=== PATIENT | male | born 1975 | race Caucasian/White ===

== ENCOUNTER 2022-03-01 13:31 | Outpatient (CLI) | payer OTHER, BC, SELFPAY | END 2022-03-01 13:32 | disposition home or self-care (01) | PROVIDERS: Visit Provider Family Medicine | DX: R06.09 Other forms of dyspnea (principal) | CPT/HCPCS: A0425; A0427 ==

== ENCOUNTER 2022-03-01 14:04 | Emergency (ER) | payer OTHER, BC, SELFPAY ==
[2022-03-01 14:09] VITALS: BP 116/66; PULSE 77; TEMP 36.7; O2SAT 97; BMI 43.9
[2022-03-01 14:22] VITALS: O2SAT 95
--- NOTE | 2022-03-01 14:23 | CRLHL7_ITS ---
For Patients: As a result of the 21st Century Cures Act, medical imaging exams and procedure reports are released immediately into your electronic medical record. You may view this report before your referring provider. If you have questions, please contact your health care provider. INDICATION: Left chest wall pain. COMPARISON: Chest radiograph 02/26/2022. CT of the abdomen and pelvis 02/26/2022. TECHNIQUE: CT of the chest with 95 cc of Isovue 370 IV contrast. Coronal and sagittal reconstructions. FINDINGS: Normal heart size. Mild aneurysmal dilation of the ascending thoracic aorta measuring 4.0 cm in AP dimension. Central pulmonary arteries are mildly prominent. Negative for acute pulmonary embolism. No pericardial effusion. No thoracic lymphadenopathy. Thyroid gland not well seen. No focal consolidation, pleural effusion, or pneumothorax. 7 mm noncalcified pulmonary nodule along the right major fissure (series 5 image 89). Mild diffuse bronchial thickening. No central endobronchial lesion. Hepatic steatosis. The visualized upper abdomen is otherwise unremarkable. Degenerative changes of the spine. No rib fracture identified. IMPRESSION: 1. Negative for acute pulmonary embolism. 2. Mild aneurysmal dilation of the ascending thoracic aorta. 3. Mild diffuse bronchial wall thickening. The lungs are otherwise clear. 4. 7 mm noncalcified pulmonary nodule along the right major fissure. Please see follow-up guidelines below. 5. Hepatic steatosis. [employer] GUID[employer]INES - SOLID NODULES: : SINGLE LOW RISK - nodule less than 6 mm: No routine follow-up. - nodule 6-8 mm: CT at 6-12 months, then consider CT at 18-24 months. - nodule greater than 8 mm: Consider CT at 3 months, PET/CT or tissue sampling. SINGLE HIGH RISK - nodule less than 6 mm: Optional CT at 12 months. - nodule 6-8 mm: CT at 6-12 months, then CT at 18-24 months. - nodule greater than 8 mm: Consider CT at 3 months, PET/CT or tissue sampling. Please note that all CT scans at this facility use dose modulation, iterative reconstruction, and/or weight-based dosing when appropriate to reduce radiation dose to as low as reasonably achievable. Dictated by Michelle Springer MD @ 03/01/2022 4:35:57 PM (Electronically Signed)
--- NOTE | 2022-03-01 14:29 | ED_ITS ---
HPI - General Adult General Time Seen by Provider: 14:29 Date Seen: 03/01/22 Chief complaint: Chest Pain Stated complaint: Covid+ Pulled Muscle Time Seen by Provider: 03/01/22 14:06 Source: patient Mode of arrival: EMS Limitations: physical limitation History of Present Illness HPI narrative: Patient is a 46 year white male from the [facility], who presents with left-sided chest wall pain. He got this when he developed COVID over Thanksgiving and he had some coughing and had subsequent sharp pain in his left lateral chest. He has been x-rayed at another hospital and they did not see any findings he presents back given that the pain has recurred and continued. He has had no marked fever, but he is COVID positive as mention. No rigors, no chills, no anterior chest pain pain is localized over the left lateral chest wall below his nipple line in the mid axillary line. 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 Related Data Home Medications Medication Instructions Recorded Confirmed buspirone 10 mg tablet mg 03/01/22 cabergoline 0.5 mg tablet mg 03/01/22 cyclobenzaprine 10 mg tablet mg 03/01/22 duloxetine 60 mg capsule,delayed mg PO 03/01/22 release losartan 25 mg tablet mg 03/01/22 oxycodone 5 mg tablet mg 03/01/22 sotalol 80 mg tablet mg 03/01/22 warfarin 5 mg tablet mg 03/01/22 Allergies Allergy/AdvReac Type Severity Reaction Status Date / Time No Known Drug Allergies Allergy Verified 03/01/22 14:54 Review of Systems Status of ROS: Reports: 6 or more systems reviewed and unremarkable except as noted in History and below Exam Narrative: Exam Narrative: Objective: The patient has stable vital signs, is alert orient x3, pleasant He is left chest wall he has a lidocaine patch on with palpation he is exquisitely tender over his costochondral margin on the left lower ribcage in the mid axillary line There is no obvious crepitus I can hear feel Abdomen is benign HEENT unremarkable neck is supple neurologic nonfocal abdomen obese benign Extremities are no edema neurologic nonfocal good peripheral perfusion noted Const: Vital Signs, click to edit/add: Vital Signs - 24 hr 03/01/22 14:09 03/01/22 14:22 03/01/22 15:32 Temperature 98.0 F Pulse Rate [Left P ulse Oximeter] 77 69 Blood Pressure [Ri ght Upper Arm] 116/66 111/65 Pulse Oximetry 97 95 93 Oxygen Delivery Me thod Room Air Room Air Course Vital Signs Vital signs: Initial Vital Signs Temperature 98.0 F 03/01/22 14:09 Temperature Source Temporal Artery Scan 03/01/22 14:09 Pulse Rate 77 03/01/22 14:09 Blood Pressure 116/66 03/01/22 14:09 Blood Pressure Mean 82 03/01/22 14:09 Blood Pressure Position Supine 03/01/22 14:09 Pulse Oximetry 97 03/01/22 14:09 Oxygen Delivery Method 03/01/22 14:09 Vital Signs Temperature 98.0 F 03/01/22 14:09 Pulse Rate 77 03/01/22 14:09 Blood Pressure 116/66 03/01/22 14:09 Pulse Oximetry 97 03/01/22 14:09 Oxygen Delivery Method 03/01/22 14:09 Temperature 98.0 F 03/01/22 14:09 Pulse Rate 64 03/01/22 16:30 Blood Pressure 115/78 03/01/22 16:30 Pulse Oximetry 96 03/01/22 16:30 Oxygen Delivery Method 03/01/22 16:30 Medical Decision Making MDM Narrative Medical decision making narrative: This 46 year white male who is COVID positive, had a significant coughing episode and injured his left chest wall. I suspect he has a rib fracture he was treat seen with and got a x-ray of his chest that was nondiagnostic. Will check an EKG, labs, CT scan of the chest with IV contrast given his history of PE although I think this is more of a mechanical chest wall injury. Of note is his EKG shows normal sinus rhythm nonspecific ST changes no obvious acute changes are some artifact present by my read Addendum: Patient's EKG looks reassuring by my read with normal sinus rhythm no acute ST T wave changes other than some artifact. His chest CT shows no rib fracture no pulmonary embolus he does have a pulmonary nodule that will need a repeat CT in 6-9 months. That is not the source of his discomfort. He does have COVID. He does feel better after IV morphine will give additional 2 mg, and then will also give him [place] from the [facility], follow up with regular doctor in the next 2 days with the video visit be preferable given he has COVID. But update by phone if needed. Expect that 7-10 days if he has a rib strain or chondral strain would take before he is improved. He was comfortable plan will follow up as needed and as directed above. Lab Data Labs: Lab Results 03/01/22 03/01/22 03/01/22 Range/Units 14:23 14:23 14:30 WBC 7.79 (4.50-11.00) K/uL RBC 4.71 (4.30-5.90) m/uL Hgb 14.6 (13.5-17.5) gm/dL Hct 43.5 (37.0-53.0) % MCV 92 (80-100) fL MCH 31 (26-34) pg MCHC 34 (32-36) gm/dL RDW Coeff of Waldemar 12.4 (11.5-15.5) % Plt Count 316 (140-440) K/uL Neut % (Auto) 71.4 (42.0-72.0) % Lymph % (Auto) 18.5 L (20-44) % [place] % (Auto) 7.4 (0.0-11.0) % Eos % (Auto) 2.1 (0.0-7.0) % Baso % (Auto) 0.3 (0.0-3.0) % Neut # (Auto) 5.57 (1.7-7.0) K/uL Lymph # (Auto) 1.40 (0.90-2.90) K/uL [place] # (Auto) 0.60 (0.00-0.90) K/UL Eos # (Auto) 0.16 (0.00-0.50) K/uL Baso # (Auto) 0.02 (0.00-0.30) K/uL Abs Immat Gran (auto) 0.02 (0.00-0.30) K/uL Imm/Tot Granulo (auto) 0.3 % INR 2.17 H (0.91-1.10) Sodium 141 (135-149) mmol/L Potassium 4.5 (3.6-5.1) mmol/L Chloride 105 (96-114) mmol/L Carbon Dioxide 31 (20-32) mmol/L BUN 11 (5-24) mg/dL Creatinine 0.9 (0.5-1.5) mg/dL Estimated Creat Clear 138.81 Estimated GFR 108 ml/min Glucose 71 (60-115) mg/dL Calcium 9.2 (8.4-10.6) mg/dL Total Bilirubin 0.5 (0.1-1.5) mg/dL Direct Bilirubin 0.2 (0.0-0.5) mg/dL AST 40 H (12-35) U/L ALT 35 (4-50) U/L Alkaline Phosphatase 96 (40-150) U/L C-Reactive Protein 0.8 (0.5-1.0) mg/dL Total Protein 7.3 (6.0-8.3) g/dL Albumin 4.2 (3.3-5.0) g/dL Discharge Plan Discharge Clinical Impression: Acute chest wall pain, Pulmonary nodule Patient Disposition: Home w/ Parent or Adult Condition: Improved Additional Instructions: Light activity, ice to the chest wall, [place] as needed, Advil as needed, update primary care doctor next 2 days, return to ED sooner problems or concerns. Patient also has a pulmonary nodule that needs follow-up CT scanning in 6-9 months. Activity Level: Light activity Discharge Diet: Regular Prescriptions: No Action cyclobenzaprine 10 mg tablet sotalol 80 mg tablet buspirone 10 mg tablet warfarin 5 mg tablet cabergoline 0.5 mg tablet losartan 25 mg tablet oxycodone 5 mg tablet Label Comments: TAKE 1 TABLET BY MOUTH EVERY 4 HOURS NEEDED FOR PAIN duloxetine 60 mg capsule,delayed release(DR/EC) PO Stand Alone Forms: [facility] Info Instructions
[2022-03-01] MEDS: 0.9 % SODIUM CHLORIDE 500 ML 500 ML IV (14:40)
[2022-03-01] MEDS: KETOROLAC 30 MG/ML inj IVP (14:40)
[2022-03-01] MEDS: MORPHINE 4 MG/ML INJ IVP (14:42)
[2022-03-01 14:45] LABS: Basophils Absolute Auto 0.02 K/uL (0.00-0.30); Basophils Percent Auto 0.3 % (0.0-3.0); Eosinophils Absolute Auto 0.16 K/uL (0.00-0.50); Eosinophils Percent Auto 2.1 % (0.0-7.0); Hematocrit 43.5 % (37.0-53.0); Hemoglobin* 14.6 gm/dL (13.5-17.5); Immature Granulocytes Abs Auto 0.02 K/uL (0.00-0.30); Immature Granulocytes Pct Auto 0.3 %; Lymphocytes Percent Auto 18.5 % (20-44); Mean Corpuscular HGB Conc 34 gm/dL (32-36); Mean Corpuscular Hemoglobin 31 pg (26-34); Mean Corpuscular Volume 92 fL (80-100); Monocytes Percent Auto 7.4 % (0.0-11.0); Neutrophils Absolute Auto 5.57 K/uL (1.7-7.0); Neutrophils Percent Auto 71.4 % (42.0-72.0); Platelet Count* 316 K/uL (140-440); RDW Coefficient of Variation % 12.4 % (11.5-15.5); Red Blood Count 4.71 m/uL (4.30-5.90); White Blood Count* 7.79 K/uL (4.50-11.00)
[2022-03-01 14:57] LABS: Albumin* 4.2 g/dL (3.3-5.0); Chloride* 105 mmol/L (96-114); Sodium* 141 mmol/L (135-149)
[2022-03-01 14:58] LABS: Potassium* 4.5 mmol/L (3.6-5.1)
[2022-03-01 15:00] LABS: Alkaline Phosphatase* 96 U/L (40-150); Aspartate Amino Transferase* 40 U/L (12-35); Bilirubin Direct* 0.2 mg/dL (0.0-0.5); Bilirubin Total* 0.5 mg/dL (0.1-1.5); Carbon Dioxide* 31 mmol/L (20-32); Creatinine* 0.9 mg/dL (0.5-1.5); Est. Creatinine Clearance* 138.81; Estimated Glomerular Filt Rate 108 ml/min; Total Protein* 7.3 g/dL (6.0-8.3)
[2022-03-01 15:01] LABS: Alanine Aminotransferase* 35 U/L (4-50); Blood Urea Nitrogen* 11 mg/dL (5-24); Calcium* 9.2 mg/dL (8.4-10.6); Glucose* 71 mg/dL (60-115)
[2022-03-01 15:03] LABS: C Reactive Protein* 0.8 mg/dL (0.5-1.0)
[2022-03-01 15:18] LABS: Slide Review Reflex No
[2022-03-01 15:32] VITALS: BP 111/65; PULSE 69; O2SAT 93
[2022-03-01 16:10] LABS: INR 2.17 (0.91-1.10); Prothrombin Time 25.3 Seconds
[2022-03-01 16:30] VITALS: BP 115/78; PULSE 64; O2SAT 96
[2022-03-01] MEDS: MORPHINE 2 MG/ML inj IVP (16:56)
== END 2022-03-01 17:16 | disposition home or self-care (01) ==
PROVIDERS: Emergency Provider Family Medicine
DX: R07.89 Other chest pain (principal); R91.1 Solitary pulmonary nodule
CPT/HCPCS: 36415; 71260; 80048; 80076; 85025; 85610; 86140; 93005; 94761; 96374; 96375; 96376; 99284; 99285; J1885; J2270; J7120; Q9967